=== PATIENT | female | born 1990 | race Caucasian/White ===

== ENCOUNTER 2020-07-15 17:50 | Emergency (ER) | payer OTHER ==
[2020-07-15] MEDS ORDERED: NORCO 5-325 TA1 EACH PO (21:03)
== END 2020-07-15 21:50 | disposition home or self-care (01) ==
LOC: FER 17:50
DX: S62.396A Other fracture of fifth metacarpal bone, right hand, initial encounter for closed fracture (principal); S93.402A Sprain of unspecified ligament of left ankle, initial encounter; R51.9 Headache, unspecified; M54.5 Low back pain; M25.562 Pain in left knee; R10.84 Generalized abdominal pain; Z88.0 Allergy status to penicillin; V43.52XA Car driver injured in collision with other type car in traffic accident, initial encounter; Y92.410 Unspecified street and highway as the place of occurrence of the external cause
CPT/HCPCS: 70450; 71250; 72040; 72100; 73130; 73564; 73610; 96374; J1885